=== PATIENT | male | born 1955 | race Caucasian/White ===

== ENCOUNTER 2022-09-19 09:33 | Outpatient (CLI) | payer OTHER, SELFPAY | END 2022-09-19 09:34 | disposition home or self-care (01) | LOC: NFLDREF 09-26 13:52 | PROVIDERS: PCP Family Medicine; Referring Provider Family Medicine; Visit Provider Family Medicine | DX: Z00.00 Encounter for general adult medical examination without abnormal findings (principal); Z13.6 Encounter for screening for cardiovascular disorders; Z12.5 Encounter for screening for malignant neoplasm of prostate | CPT/HCPCS: 80048; 80061; 84153 ==

== ENCOUNTER 2023-01-02 13:53 | Outpatient (CLI) | payer MEDICARE, SELFPAY | END 2023-01-02 13:54 | disposition home or self-care (01) | PROVIDERS: PCP Family Medicine; Visit Provider Family Medicine | DX: R53.83 Other fatigue (principal); E11.9 Type 2 diabetes mellitus without complications; E78.5 Hyperlipidemia, unspecified; I10 Essential (primary) hypertension | CPT/HCPCS: 82043; 82570; 82607; 84443 ==

== ENCOUNTER 2024-03-24 08:35 | Outpatient (CLI) | payer MEDICARE, SELFPAY | END 2024-03-24 08:36 | disposition home or self-care (01) | LOC: NFLDREF 03-28 11:57 | PROVIDERS: PCP Family Medicine; Referring Provider Family Medicine; Visit Provider Family Medicine | DX: E78.5 Hyperlipidemia, unspecified (principal); I10 Essential (primary) hypertension; Z12.5 Encounter for screening for malignant neoplasm of prostate; E11.65 Type 2 diabetes mellitus with hyperglycemia; Z79.84 Long term (current) use of oral hypoglycemic drugs | CPT/HCPCS: 80053; 80061; 82043; 82570; G0103 ==

== ENCOUNTER 2025-04-08 13:02 | Outpatient (CLI) | payer MEDICARE, SELFPAY | END 2025-04-08 13:03 | disposition home or self-care (01) | LOC: LKVREF 13:03 | PROVIDERS: PCP Family Medicine; Visit Provider Family Medicine | DX: D64.9 Anemia, unspecified (principal); E78.5 Hyperlipidemia, unspecified; Z12.5 Encounter for screening for malignant neoplasm of prostate | CPT/HCPCS: 80053; 80061; 82043; 82570; G0103 ==

== ENCOUNTER 2025-05-17 10:18 | Outpatient (CLI) | payer MEDICARE, SELFPAY | END 2025-05-17 10:19 | disposition home or self-care (01) | LOC: LKVREF 10:19 | PROVIDERS: PCP Family Medicine; Visit Provider Family Medicine | DX: E11.9 Type 2 diabetes mellitus without complications (principal); E78.5 Hyperlipidemia, unspecified; I10 Essential (primary) hypertension | CPT/HCPCS: 80076 ==